=== PATIENT | male | born 1995 | race Caucasian/White ===

== ENCOUNTER 2019-01-04 19:01 | Emergency (ER) | payer OTHER ==
[2019-01-04] MEDS: HYDROCODONE/APAP (5/325) TAB PO (21:16)
== END 2019-01-04 22:35 | disposition home or self-care (01) ==
LOC: FTE 22:35
DX: S05.12XA Contusion of eyeball and orbital tissues, left eye, initial encounter (principal); S39.92XA Unspecified injury of lower back, initial encounter; Y04.8XXA Assault by other bodily force, initial encounter
CPT/HCPCS: 70450; 70486; 72100; 99284-25